=== PATIENT | male | born 1950 | race Caucasian/White ===

== ENCOUNTER 2025-04-06 13:32 | Inpatient (IN) | payer OTHER, SELFPAY ==
--- NOTE | ~2025-04-06 | XR_ITS ---
CLINICAL HISTORY: fall, pain in R knee 2 view right knee Comparison: None provided Findings: No acute fracture. No dislocation. Tricompartment degenerative changes most significantly involving the medial tibiofemoral compartment. No erosions. Postoperative changes consistent with previous ACL repair. Small suprapatellar joint effusion. Atherosclerotic vascular disease. IMPRESSION: 1. No acute fracture or dislocation. 2. Tricompartment degenerative changes and small joint effusion. 3. Previous ACL repair. This document has been electronically signed by: Michelle Gómez MD on 04/06/2025 18:02:35
--- NOTE | ~2025-04-06 | CT_ITS ---
CLINICAL HISTORY: fall with head strike CT head without contrast Comparison: None provided Findings: No intra-axial mass, midline shift or hydrocephalus. There is atrophy. Prominent encephalomalacia in left middle cranial artery territory with ex vacuo dilatation of left lateral ventricle. Supratentorial white matter hypodensities most suggestive of chronic small-vessel ischemic changes. Atherosclerotic vascular disease. 5 mm hyperdensity just lateral to the left lateral ventricle likely a calcification but hemorrhage not entirely excluded. Previous paranasal sinus surgery. Opacified left frontal sinus. Otherwise sinuses and mastoid air cells are clear. The orbits are within normal limits. No acute skull fracture. IMPRESSION: 1. 5 mm focal hyperdensity just lateral to the left lateral ventricle likely a calcification but very small hemorrhage not entirely excluded. 2. Nonacute left MCA territorial infarct, white matter chronic ischemic changes and atherosclerotic vascular disease. This document has been electronically signed by: Michelle Gómez MD on 04/06/2025 18:11:07
--- NOTE | ~2025-04-06 | CT_ITS ---
EXAMINATION: CT CHEST WITHOUT IV CONTRAST INDICATION: cough ?PNA COMPARISON: There are no prior studies available for comparison. TECHNIQUE: Helical CT scan of the chest was performed without intravenous contrast. Coronal and sagittal reformatted images were generated and reviewed. This CT exam was performed with one or more of the following dose reduction techniques: automated exposure control, adjustment of the mA and/or kV according to patient size, use of iterative reconstruction technique. DLP: 59 mGy-cm CHEST: THYROID: The thyroid is unremarkable. LUNGS: There are partially opacified bronchi in the right upper lobe and both lower lobes there is airspace opacity in both lower lobes with associated volume loss system with atelectasis. This is more extensive in the left lower lobe, suggestive of pneumonia. MEDIASTINUM: There is a 1.5 cm paratracheal lymph node. SHAHEED: Evaluation of the hilar regions is limited by lack of intravenous contrast material. CARDIOVASCULATURE: The heart is normal in size. There is no pericardial effusion. The thoracic aorta is normal in caliber. DEGREE OF CORONARY CALCIFICATION: severe PLEURA: There is a small left pleural effusion. No pneumothorax. MAIN AIRWAYS: The mainstem bronchi and proximal branches are patent. AXILLA: There is no axillary lymphadenopathy. BONES AND SOFT TISSUES: Unremarkable UPPER ABDOMEN: The visualized portions of the liver, spleen, and adrenals have an unremarkable unenhanced appearance. There are postsurgical changes involving the stomach. CT/CT chest wo IV con IMPRESSION: 1. Probable left lower lobe pneumonia with an associated small pleural effusion. 2. Opacified bronchi in the right upper lobe and in both lower lobes. Follow-up is recommended. Electronically signed by: Moiz Flor MD 04/08/2025 12:31 PM EDT
--- NOTE | ~2025-04-06 | CT_ITS ---
CLINICAL HISTORY: trauma CT head without contrast Comparison: CT/SR - HEAD HEAD_WITHOUT (ADULT) - 04/06/25 16:56 EDT Findings: No intra-axial mass, midline shift or hydrocephalus. There is atrophy encephalomalacia again demonstrated in left middle cerebral artery territory consistent with nonacute infarcts. There is ex vacuo dilatation of the left lateral ventricle. Nonspecific bilateral supratentorial white matter hypodensities most suggestive of chronic small-vessel ischemic changes. Atherosclerotic vascular disease 5 mm rounded hyperdensity again demonstrated just lateral to the left lateral ventricle likely a calcification. Opacified left frontal sinus. Paranasal sinus surgery. The orbits are within normal limits. No acute skull fracture. IMPRESSION: 1. No new intracranial abnormality. 2. Stable 5 mm rounded hyperdensity just lateral to the left lateral ventricle likely a calcification. 3. Atrophy, nonacute left MCA territorial infarct chronic white matter ischemic changes. This document has been electronically signed by: Michelle Gómez MD on 04/07/2025 01:06:30
--- NOTE | ~2025-04-06 | XR_ITS ---
EXAMINATION: XR CHEST 1 VIEW HISTORY: cough COMPARISON: There are no prior studies available for comparison. FINDINGS: A single AP portable view of the chest performed at 7:07 AM is submitted. There is opacification of the left lung base which may represent atelectasis or pneumonia. Possible small left pleural effusion. No pneumothorax or pulmonary vascular congestion. The heart is normal in size. There is mild degenerative disc disease of the spine. XR/XR chest 1V IMPRESSION: Left basilar atelectasis versus pneumonia possible small pleural effusion. Follow-up is recommended. Electronically signed by: Moiz Flor MD 04/08/2025 08:02 AM EDT
[2025-04-06 13:40] VITALS: BP 140/88; BP 147/81; PULSE 76; PULSE 86; RESP 16; TEMP 36.8; O2SAT 100; O2SAT 98; BMI 32.6
--- NOTE | 2025-04-06 16:01 | ED.GENADULT ---
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 states her had a fall 4 days ago on Monday 04/02 at his assisted living facility when his HALL TENDER was helping him walk and transfer to his recliner chair when she let go of him and he became unstable falling onto his R side and hitting the R side of his head and eye on a cardboard box with immediate R knee pain. Patient was evaluated by EMS but did not go to the hospital. states since the fall, he has been a 2 person assist and the facility wanted the patient evaluated by physical therapy and was sent to ED. [facility] of the R knee were negative. Patient states he is having R knee pain. Denies chest pain, SOB, abdominal pain, nausea, vomiting, headache. MD complaint: weakness Related Data Home Medications ?Medication ?Instructions ?Recorded ?Confirmed acetaminophen 500 mg tablet 500 mg PO Q12H PRN Pain, Mild 04/06/25 04/07/25 albuterol sulfate 2.5 mg/3 mL 2.5 mg inhalation Q6H PRN Wheezing 04/06/25 04/07/25 (0.083 %) solution for nebulization albuterol sulfate 90 mcg/actuation 2 puff inhalation Q4H PRN Wheezing 04/06/25 04/07/25 aerosol inhaler aspirin 325 mg tablet 325 mg PO DAILY 04/06/25 04/06/25 atorvastatin 80 mg tablet (Lipitor) 80 mg PO DAILY 04/06/25 04/06/25 baclofen 20 mg tablet 20 mg QID 04/06/25 04/06/25 clopidogrel 75 mg tablet 75 mg PO DAILY 04/06/25 04/06/25 docusate sodium 100 mg tablet 100 mg PO DAILY 04/06/25 04/06/25 dupilumab 300 mg/2 mL subcutaneous 300 mg subcut Q2W 04/06/25 04/06/25 pen injector (DupixMoogsoft) famotidine 40 mg tablet 40 mg PO BEDTIME 04/06/25 04/06/25 fluoxetine 20 mg capsule (Prozac) 20 mg PO DAILY 04/06/25 04/06/25 fluticasone fur. 200 mcg-umeclid 1 inh inhalation DAILY 04/06/25 04/06/25 62.5 mcg-vilant 25 mcg inhalat.powder (Trelegy Ellipta) fluticasone propionate 50 2 spray intranasal DAILY 04/06/25 04/06/25 mcg/actuation nasal spray,suspension guar gum 1 tbsp PO DAILY 04/06/25 04/06/25 levetiracetam 750 mg tablet 750 mg PO BID 04/06/25 04/06/25 niacinamide 500 mg tablet 500 mg PO BID 04/06/25 04/06/25 omeprazole 40 mg capsule,delayed 40 mg PO DAILY 04/06/25 04/06/25 release tamsulosin 0.4 mg capsule (Flomax) 0.4 mg PO DAILY 04/06/25 04/06/25 Allergies Allergy/AdvReac Type Severity Reaction Status Date / Time amoxicillin Allergy Unknown Verified 04/06/25 13:54 apixaban Allergy Unknown Verified 04/06/25 13:54 doxycycline Allergy Unknown Verified 04/06/25 13:54 Penicillins (PCN) Allergy Unknown Verified 04/06/25 13:54 phenytoin (From Dilantin) Allergy Unknown Verified 04/06/25 13:54 Quinolones Allergy Unknown Verified 04/06/25 13:54 sulfamethoxazole (From Allergy Unknown Verified 04/06/25 13:54 Bactrim) trimethoprim (From Bactrim) Allergy Unknown Verified 04/06/25 13:54 Review of Systems Review of Systems: CONST: Negative for fever, body aches and chills. HENT: Negative for neck pain/stiffness, headache, congestion, sore throat, swelling. EYES: Negative for discharge/pain or vision changes. RESP: Negative for cough/hemoptysis and shortness of breath. CV: Negative chest pain, difficulty breathing, palpitations. ABD: Negative pain, nausea, vomiting. : Negative increase frequency, dysuria, blood in urine or stool. MUSC: Negative for muscle aches, edema. SKIN: Negative rash, lesions/sores. NEURO: Negative headache, dizziness, weakness. Yes all other systems are reviewed and are negative [facility] Past Medical History Attestation statement: The following information was validated with the patient. Source: old records reviewed and nursing notes reviewed Social History Social History Advance Directives: Yes Advance Directives Information Provided: Yes Advance Directives on File: Yes Advance Directives Date on File: 04/07/25 Do you have a plan to hurt others: No Plan Physical Exam ED Vital Signs: Vital Signs - 24 hr 04/07/25 14:19 04/07/25 21:07 04/08/25 06:10 Temperature 98.6 F 97.9 F 98.3 F Pulse Rate 79 70 76 Respiratory Rate 15 16 18 Blood Pressure 117/81 131/73 118/80 Pulse Oximetry 96 94 92 Oxygen Delivery Method Room Air Room Air Room Air 04/08/25 07:45 Temperature Pulse Rate 71 Respiratory Rate 16 Blood Pressure Pulse Oximetry Oxygen Delivery Method BMI result Body Mass Index 32.6 GENERAL APPEARANCE: ?AxOx4, generally well-appearing, no acute distress, patient has dysphasia and R sided weakness as residual deficits from stroke in 2013 HEENT: ?NC, AT. MMM. EOMI, clear conjunctiva, oropharynx clear. Small stage III ecchymosis over the right eye. NECK: ?Supple without lymphadenopathy.? No stiffness or restricted ROM. HEART:? Normal rate and regular rhythm, normal S1/S2, no m/r/g LUNGS:? CTAB, moving air well. No crackles or wheezes are heard. ABDOMEN: ?Soft, nontender, nondistended BACK: No CVAT, no obvious deformity. EXTREMITIES: ?Without cyanosis, clubbing or edema. NEUROLOGICAL: ?Grossly nonfocal. Alert and oriented, moving all 4 extremities. Skin: ?Warm and dry without any rash. Course Reevaluation(s) Reevaluation #1: The patient's CT scan showed a 5 mm hyperdensity in his likely a calcification but could not rule out intracranial hemorrhage. Given that there was a fall 5 days ago with increased weakness I discussed with [facility], Dr. Angulo, who reccommends a repeat head CT in 6 hours to see if the hyperdensity is confimred as a bleed or calcification. In his smaller or a calcification, cleared medically cleared, if it is larger the patient will require transfer. A repeat head CT was ordered for 11:00 p.m. Time: 19:05 Reevaluation #2: Patient's repeat head CT shows a stable 5 mm rounded hyperdensity which is most likely calcification. He is medically cleared for PT and case management. Even if this was a very small bleed, he will be medically cleared after a 6 hour observation period per [facility] recommendations. Time: 01:08 Reevaluation #3: 04/07/2025 0758 Melanie Braun PA-C ---> Observation continues. Case management continues to follow. Additional Reevaluation(s): Physician observation continued. Uneventful night. Vital signs stable. No complaints from nursing overnight. Med reconciliation reviewed and done. Pending disposition. Will continue to monitor. -1308--patient noted to have dropping O2 and chunky cough on exam. Chest x-ray questioning atelectasis vs pneumonia vs pleural effusion > will obtain CT for further eval CT chest wo IV con IMPRESSION: 1. Probable left lower lobe pneumonia with an associated small pleural effusion. 2. Opacified bronchi in the right upper lobe and in both lower lobes. Follow-up is recommended. > we will initiate patient on antibiotics. Plan for admission due to elevated PORT score =105. Case discussed with hospitalist 13:17 Medications Administered Generic Name Dose Route Start Last Admin Trade Name Freq PRN Reason Stop Dose Admin Aspirin 325 mg 04/07/25 09:00 04/08/25 08:58 Aspirin 325 Mg Tablet PO 325 mg DAILY ALICE Administration Atorvastatin Calcium 80 mg 04/07/25 09:00 04/08/25 08:58 Atorvastatin Calcium 80 Mg Tablet PO 80 mg DAILY ALICE Administration Baclofen 20 mg 04/07/25 09:00 04/08/25 08:57 Baclofen 20 Mg Tablet PO 20 mg QID ALICE Administration Clopidogrel Bisulfate 75 mg 04/07/25 09:00 04/08/25 08:58 Clopidogrel Bisulfate 75 Mg Tablet PO 75 mg DAILY ALICE Administration Docusate Sodium 100 mg 04/07/25 09:00 04/08/25 08:53 Docusate Sodium 100 Mg Capsule PO 100 mg DAILY ALICE Administration Famotidine 40 mg 04/07/25 21:00 04/07/25 21:29 Famotidine 20 Mg Tablet PO 40 mg BEDTIME ALICE Administration Fluoxetine HCl 20 mg 04/07/25 09:00 04/08/25 08:58 Fluoxetine Hcl 20 Mg Capsule PO 20 mg DAILY ALICE Administration Fluticasone Propionate 2 spray 04/07/25 09:00 04/08/25 09:55 Fluticasone Propionate Nasal 16 Gm [place] NOSTRIL-B Not Given DAILY ALICE Fluticasone/Umeclidinium/Vilanterol 1 puff 04/07/25 09:00 04/08/25 09:33 Fluticasone/Umeclidinium/Vilanterol 200/62.11/21 Blst.W.Dev INHALE 1 puff DAILY ALICE Administration Levetiracetam 750 mg 04/07/25 09:00 04/08/25 08:59 Levetiracetam 250 Mg Tablet PO 750 mg BID ALICE Administration Pt Owned Medication 1 each 04/07/25 13:00 04/07/25 13:06 (Dupixent 300mg SUBCUT 1 each Subcutaneous Pre- Q14D ALICE Administration Filled Pen) Omeprazole 40 mg 04/07/25 06:30 04/08/25 06:11 Omeprazole 40 Mg Capsule. 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 Patient had a recent fall due to his right knee giving out underneath him while his HALL TENDER was helping him transfer to his recliner chair. Since then he has required a 2 person assist, his assisted living facility wants him evaluated by Physical therapy and was sent in due to these concerns. Patient is experiencing right knee pain. Plan: Labs, EKG, CT head/brain, XR R knee, PT evaluation EKG reveals normal sinus rhythm without significant ST-elevation/depression, T-wave abnormality, lengthened QT. Labs without leukocytosis/leukopenia, normocytic anemia with a hemoglobin of 12.7, hematocrit of 36.4, hyponatremia with a sodium of 133. Viral serology negative for COVID and flu. UA negative for blood or infection. Patient is currently awaiting CT head/brain, XR R knee for further evaluation as I was unable to obtain x-rays, patient did not have CT head brain after falling and hitting right side of head on cardboard box. Differential Diagnosis Differential Diagnoses: The differential diagnosis associated with the presentation includes ICH Right knee fracture Electrolyte abnormality Physical deconditioning Admission/Observation Consideration of admission/observation: Escalation of care including admission/observation considered Lab Data MDM Lab Attestation statement: I reviewed the patient's lab results. 04/06/25 16:23 04/06/25 16:23 Labs: Lab Results 04/06/25 04/06/25 Range/Units 16:23 17:13 WBC 6.2 (4.8-10.8) X10*3/uL RBC 4.06 L (4.60-5.80) X10*6/uL Hgb 12.7 L (14.0-18.0) g/dl Hct 36.4 L (42.0-52.0) % MCV 89.7 (80.0-98.0) fL MCH 31.3 (27.0-33.0) pg MCHC 34.9 (31.0-36.0) g/dl RDW 13.3 (11.0-16.0) % Plt Count 183 D (160-400) X10*3/uL MPV 8.7 L (9.4-12.4) fL Immature Gran % (Auto) 0.3 (0.0-0.4) % Neut % (Auto) 47.1 (45-73) % Lymph % (Auto) 19.1 L (20-40) % [place] % (Auto) 15.4 H (2-11) % Eos % (Auto) 17.3 H (0-4) % Baso % (Auto) 0.8 (0-2) % Lymph # (Auto) 1.2 (1.2-4.9) X10*3/uL [place]ner # (Auto) 1.0 (0.1-1.2) X10*3/uL Eos # (Auto) 1.1 H (0.0-0.4) X10*3/uL Baso # (Auto) 0.1 (0.0-0.2) X10*3/uL Abs Immat Gran (auto) 0.02 (0.00-0.03) X10*3/uL Absolute Neuts (auto) 2.9 (2.0-8.3) x10*3/uL Absolute Nucleated RBC 0.000 (0.0-0.012) X10*3/uL Nucleated RBC % (auto) 0.0 (0.0-0.2) /100WBC Sodium 133 L (135-145) mmol/L Potassium 4.2 (3.3-5.1) mmol/L Chloride 102 (96-108) mmol/L Carbon Dioxide 26 (22-29) mmol/L Anion Gap 9 L (12-20) BUN 14 (9-16) mg/dL Creatinine 0.69 (0.5-1.4) mg/dL Estim Creat Clear Calc 91.5 Estimated GFR > 60 Random Glucose 118 H (60-115) mg/dL Calcium 8.9 (8.4-10.2) mg/dL Magnesium 1.8 (1.6-2.6) mg/dL Total Bilirubin 0.6 (0.0-1.0) mg/dL AST 37 (5-37) U/L ALT 32 (0-40) U/L Alkaline Phosphatase 108 (39-117) U/L Total Protein 6.0 L (6.5-8.0) g/dL Albumin 3.8 (3.5-5.0) g/dL Urine Color Yellow Urine Appearance Clear Urine pH 7.5 (5.0-9.0) Ur Specific [place] 1.010 (1.005-1.025) Urine Protein Negative (Neg-Trace) mg/dL Urine Glucose (UA) Negative (Negative) mg/dL Urine Ketones Negative (Negative) mg/dL Urine Blood Negative (Negative) Urine Nitrite Negative (Negative) Ur Leukocyte Esterase Negative (Negative) COVID-19 (TIAGO) Negative (Negative) COVID-19 Clin Com See Note Influenza Type A (RIKA) Negative (Negative) Influenza Type B (RIKA) Negative (Negative) Influenza A & B Note See Note Independent Interpretation I performed an independent interpretation of an: Plain X-Ray and CT Scan Radiology Impression Discussion of test interpretation with radiology: I have reviewed the radiologist's reading. Radiologist Impression: CT head/brain XR R knee Independent Historian Clinical information obtained from an independent historian. History obtained from or confirmed by: Spouse ( at bedside corroborating history) External Record Review External record reviewed: Inpatient record, Office record and Outpatient record Chronic Conditions Patient?s care impacted by: Other (CVA in 2014 with dysphagia and right-sided deficits) Discharge Plan Discharge Clinical Impression: Weakness Prescriptions: No Action acetaminophen 500 mg Tablet 500 mg PO Q12H PRN (Reason: Pain, Mild) atorvastatin [Lipitor] 80 mg Tablet 80 mg PO DAILY albuterol sulfate 2.5 mg /3 mL (0.083 %) Solution For Nebulization 2.5 mg inhalation Q6H PRN (Reason: Wheezing) aspirin 325 mg Tablet 325 mg PO DAILY famotidine 40 mg Tablet 40 mg PO BEDTIME omeprazole 40 mg Capsule,Delayed Release(Dr/Ec) 40 mg PO DAILY Benefiber (guar gum) Packet 1 tbsp PO DAILY Rx Instructions: mix into at least 4 oz water or juice before administering baclofen 20 mg Tablet 20 mg QID tamsulosin [Flomax] 0.4 mg Capsule 0.4 mg PO DAILY levetiracetam 750 mg Tablet 750 mg PO BID albuterol sulfate [ProAir HFA] 90 mcg/actuation Hfa Aerosol Inhaler 2 puff INHALATION Q4H PRN (Reason: Wheezing) fluoxetine [Prozac] 20 mg Capsule 20 mg PO DAILY fluticasone propionate 50 mcg/actuation [place],Suspension 2 spray INTRANASAL DAILY Rx Instructions: administer into each nostril docusate sodium 100 mg Tablet 100 mg PO DAILY Trelegy Ellipta 200-62.5-25 mcg Blister With Device 1 inh INHALATION DAILY Dupixent Pen 300 mg/2 mL Pen Injector 300 mg SUBCUT Q2W clopidogrel 75 mg Tablet 75 mg PO DAILY niacinamide 500 mg Tablet 500 mg PO BID Print Language: Somali
--- NOTE | 2025-04-06 16:02 | ECG_ITS ---
Test Reason : WEAKNESS Blood Pressure : */* mmHG Vent. Rate : 80 BPM Atrial Rate : 80 BPM P-R Int : 196 ms QRS Dur : 80 ms QT Int : 384 ms P-R-T Axes : 26 -22 -1 degrees QTcB Int : 442 ms Normal sinus rhythm Minimal voltage criteria for LVH, may be normal variant ( R in aVL ) Borderline ECG No previous ECGs available Referred By: Thea Colón Electronically Signed By: SINCERE JOSEPH MD
[2025-04-06 16:27] LABS: MANUAL DIFF FLAG NO
[2025-04-06 16:28] LABS: Hematocrit 36.4 % (42.0-52.0); Hemoglobin 12.7 g/dl (14.0-18.0); Imm Gran Abs Auto 0.02 X10*3/uL (0.00-0.03); Imm Gran Pct Auto 0.3 % (0.0-0.4); Lymphocytes Absolute Auto 1.2 X10*3/uL (1.2-4.9); Mean Corpuscular HGB Conc 34.9 g/dl (31.0-36.0); Mean Corpuscular Hemoglobin 31.3 pg (27.0-33.0); Mean Corpuscular Volume 89.7 fL (80.0-98.0); NRBC Abs Auto 0.000 X10*3/uL (0.0-0.012); NRBC Pct Auto 0.0 /100WBC (0.0-0.2); Platelet Count 183 X10*3/uL (160-400); Red Blood Count 4.06 X10*6/uL (4.60-5.80); White Blood Count 6.2 X10*3/uL (4.8-10.8)
[2025-04-06 16:43] LABS: Alanine Aminotransferase 32 U/L (0-40); Albumin Level 3.8 g/dL (3.5-5.0); Alkaline Phosphatase 108 U/L (39-117); Anion Gap 9 (12-20); Aspartate Amino Transferase 37 U/L (5-37); Blood Urea Nitrogen 14 mg/dL (9-16); Calcium 8.9 mg/dL (8.4-10.2); Carbon Dioxide 26 mmol/L (22-29); Chloride 102 mmol/L (96-108); Creatinine Clr Calc Pharmacy 91.5; Estimated Glomerular Filt Rate > 60; Magnesium 1.8 mg/dL (1.6-2.6); Potassium 4.2 mmol/L (3.3-5.1); Sodium 133 mmol/L (135-145); Total Protein 6.0 g/dL (6.5-8.0)
[2025-04-06 16:45] LABS: COVID-19 Test Negative (Negative); IDNOW Serial# 55D5AD1C; IDNOW Serial# 58CA691E
[2025-04-06 16:46] LABS: Influenza B2 Negative (Negative)
[2025-04-06 17:13] VITALS: BP 157/89; PULSE 71; RESP 14; TEMP 36.6; O2SAT 96
[2025-04-06 17:20] LABS: Appearance Urine Clear; Glucose Urine UA Negative (Negative); PH 7.5 (5.0-9.0); Specific Gravity - Urine 1.010 (1.005-1.025)
[2025-04-06 23:50] VITALS: BP 145/70; PULSE 66; RESP 18; TEMP 36.6; O2SAT 94
[2025-04-07 05:21] VITALS: BP 163/92; PULSE 72; RESP 18; O2SAT 95
--- NOTE | 2025-04-07 07:36 | PHA.MEDREC ---
Pharmacy Consult ? Medication Reconciliation Pharmacy has completed the medication reconciliation. reviewed med rec done by nursing.
[2025-04-07 07:50] VITALS: BP 165/89; PULSE 75; RESP 16; TEMP 37.1; O2SAT 93
--- NOTE | 2025-04-07 08:23 | PC.NURSE ---
PT at bedside. Pt up oob with PT to recliner. Call barney within reach, all needs met at this time.
--- NOTE | 2025-04-07 10:35 | MHC.CM.ED ---
Received case management consult overnight. Patient came to the ER from [facility] d/t weakness. Work up essentially negative. Physical therapy eval completed. Short term rehab is recommended. Met with patient in regards to discharge planning. Patient has a history of CVA and has some difficulty word finding. Attempted to speak with patient's , Fredis, via telephone at [phone]. Left message requesting return telephone call. Patient is active with [facility]. Referral will be broadcasted locally for STR bed availability. Bed offers will be discussed with patient and . Continue to monitor for d/c needs.
--- NOTE | 2025-04-07 10:55 | MHC.CM.ED ---
Patient's Fredis is now bedside. Met with patient and Fredis to discuss d/c planning. Fredis is interested in Acute Rehab for patient. Fredis aware referral will be broadcasted to all 3 acute rehab facilities. Also aware bed would have to be offered and insurance with have to auth. Fredis verbalized understanding. Referral made to all 3 acute rehab facilities. Continue to monitor for d/c needs.
[2025-04-07] MEDS: Fluticasone/Umeclidinium/Vilanterol 200/62.5/25 BLST.W.DEV 1 PUFF INHALE (10:57)
[2025-04-07] MEDS: DUPILUMAB SUBCUT (13:06)
[2025-04-07] MEDS: [UNRECOGNIZED DRUG - OTHER] SUBCUT (13:06)
[2025-04-07 14:19] VITALS: BP 117/81; PULSE 79; RESP 15; TEMP 37; O2SAT 96
[2025-04-07 21:07] VITALS: BP 131/73; PULSE 70; RESP 16; TEMP 36.6; O2SAT 94
[2025-04-08 06:10] VITALS: BP 118/80; PULSE 76; RESP 18; TEMP 36.8; O2SAT 92
[2025-04-08 07:45] VITALS: PULSE 71; RESP 16; O2SAT 99
[2025-04-08] MEDS: Fluticasone/Umeclidinium/Vilanterol 200/62.5/25 BLST.W.DEV 1 PUFF INHALE (09:33)
--- NOTE | 2025-04-08 11:56 | PC.NURSE ---
Pt has been alert since this RN arrival at 7am. Pt is unble to state needs easily d/t residual dysphasia from stroke 10 years ago. Right deficit is also residual. Pt has attempted to use urinal repeatedly w/o success and wondered if abd was distended. At this point Bladder scan showed 193. Shortly after bladder scan patient was able to void 250ml in urinal. Was given AM care and up to recliner with 2 person assist and use of adaptive walker. Pt has been coughing throughout am with productive clear mucous. LS clear throughout. Unlabored resp. Provider was made aware and patient has gone for CT to r/o Pneumonia. is aware of possibility that patient is admitted to [facility] for pneumonia
[2025-04-08 13:46] VITALS: BP 126/72; PULSE 71; RESP 18; TEMP 36.7; O2SAT 98
--- NOTE | 2025-04-08 14:03 | MHC.CM.ED ---
Patient remains in ER overflow. No acute rehab bed offers. Received notification that patient will be admitted to the hospital for pneumonia. Continue to monitor for d/c needs.
[2025-04-08 14:35] LABS: MANUAL DIFF FLAG NO
[2025-04-08 14:48] LABS: Hematocrit 37.5 % (42.0-52.0); Hemoglobin 12.9 g/dl (14.0-18.0); Imm Gran Abs Auto 0.02 X10*3/uL (0.00-0.03); Imm Gran Pct Auto 0.3 % (0.0-0.4); Lymphocytes Absolute Auto 1.2 X10*3/uL (1.2-4.9); Mean Corpuscular HGB Conc 34.4 g/dl (31.0-36.0); Mean Corpuscular Hemoglobin 31.0 pg (27.0-33.0); Mean Corpuscular Volume 90.1 fL (80.0-98.0); NRBC Abs Auto 0.000 X10*3/uL (0.0-0.012); NRBC Pct Auto 0.0 /100WBC (0.0-0.2); Platelet Count 215 X10*3/uL (160-400); Red Blood Count 4.16 X10*6/uL (4.60-5.80); White Blood Count 6.9 X10*3/uL (4.8-10.8)
[2025-04-08 14:53] LABS: Anion Gap 9 (12-20); Blood Urea Nitrogen 15 mg/dL (9-16); Calcium 8.8 mg/dL (8.4-10.2); Carbon Dioxide 27 mmol/L (22-29); Chloride 98 mmol/L (96-108); Creatinine Clr Calc Pharmacy 98.7; Estimated Glomerular Filt Rate > 60; Potassium 4.2 mmol/L (3.3-5.1); Sodium 130 mmol/L (135-145)
--- NOTE | 2025-04-08 15:03 | P.HPHOSP_ITS ---
History of Present Illness Date of Service: 04/08/25 Attending physician on admission: Jorge Alberto Daily Chief Complaint: cough This is a 74-year-old male with a history of stroke with residual right-sided weakness and expressive aphasia who presented to the emergency department due to weakness. He fell on FridayApril 02 at the assisted living facility, he fell onto his right side and hit his head. At that time he did not go to the hospital. Since his fall he has been a to assist. And he has had right knee pain since the fall. The day prior to arrival in the hospital he was seen at the [facility] and had x-rays of his knee which were unremarkable. CT scan done in the emergency department showed a 5 mm hyperdensity likely calcification but could not rule out intracranial hemorrhage, the case was discussed with [facility] who recommended repeating the head CT. Head CT was stable and therefore no indication for any further intervention. He was admitted to [facility] under physician observation for physical therapy evaluation. While in [facility] patient was noted to have productive cough, a chest CT was obtained which showed a left-sided pneumonia with small parapneumonic effusion. For this reason the decision was made to admit him to the hospital for further management. Patient is unable to provide any significant history himself due to deficits from his stroke, history was primarily obtained from his at the bedside. Review of Systems 2 Review of Systems: unable to obtain from pt due to aphasia Yes all other systems are reviewed and are negative [facility] Medical History Stroke Social History Advance Directives: Yes Advance Directives Information Provided: Yes Advance Directives on File: Yes Advance Directives Date on File: 04/07/25 Do you have a plan to hurt others: No Plan Meds Allergies Allergy/AdvReac Type Severity Reaction Status Date / Time amoxicillin Allergy Unknown Verified 04/06/25 13:54 apixaban Allergy Unknown Verified 04/06/25 13:54 doxycycline Allergy Unknown Verified 04/06/25 13:54 Penicillins (PCN) Allergy Unknown Verified 04/06/25 13:54 phenytoin (From Dilantin) Allergy Unknown Verified 04/06/25 13:54 Quinolones Allergy Unknown Verified 04/06/25 13:54 sulfamethoxazole (From Allergy Unknown Verified 04/06/25 13:54 Bactrim) trimethoprim (From Bactrim) Allergy Unknown Verified 04/06/25 13:54 Active Medications: Current Medications Acetaminophen (Acetaminophen 325 Mg Tablet) 650 mg PO Q12H PRN PRN Reason: Pain, Mild Acetaminophen (Acetaminophen 325 Mg Tablet) 650 mg PO Q6H PRN PRN Reason: Pain, Mild 1-3,fever,headache Albuterol Sulfate (Albuterol Sulfate (0.083%) 2.5 Mg/3 Ml Vial.Neb) 2.5 mg INHALE Q6H PRN PRN Reason: Wheezing Albuterol Sulfate (Albuterol Sulfate 90 Mcg 8 Gm Inhaler) 2 puff INHALE Q4H PRN PRN Reason: Wheezing Aspirin (Aspirin 325 Mg Tablet) 325 mg PO DAILY [facility] Last Admin: 04/08/25 08:58 Dose: 325 mg Atorvastatin Calcium (Atorvastatin Calcium 80 Mg Tablet) 80 mg PO DAILY [facility] Last Admin: 04/08/25 08:58 Dose: 80 mg Baclofen (Baclofen 20 Mg Tablet) 20 mg PO QID [facility] Last Admin: 04/08/25 08:57 Dose: 20 mg Calcium Carbonate (Calcium Carbonate 750 Mg Tab.Chew) 750 mg PO Q4H PRN PRN Reason: Heartburn Clopidogrel Bisulfate (Clopidogrel Bisulfate 75 Mg Tablet) 75 mg PO DAILY [facility] Last Admin: 04/08/25 08:58 Dose: 75 mg Docusate Sodium (Docusate Sodium 100 Mg Capsule) 100 mg PO DAILY [facility] Last Admin: 04/08/25 08:53 Dose: 100 mg Famotidine (Famotidine 20 Mg Tablet) 40 mg PO BEDTIME [facility] Last Admin: 04/07/25 21:29 Dose: 40 mg Fluoxetine HCl (Fluoxetine Hcl 20 Mg Capsule) 20 mg PO DAILY [facility] Last Admin: 04/08/25 08:58 Dose: 20 mg Fluticasone Propionate (Fluticasone Propionate Nasal 16 Gm [place]) 2 spray NOSTRIL-B DAILY [facility] Last Admin: 04/08/25 09:55 Dose: Not Given Fluticasone/Umeclidinium/Vilanterol (Fluticasone/Umeclidinium/Vilanterol 200/62.5/25 Blst.W.Dev) 1 puff INHALE DAILY [facility] Last Admin: 04/08/25 09:33 Dose: 1 puff Heparin Sodium (Porcine) (Heparin Sodium,Porcine 5,000 Unit/Ml Vial) 5,000 unit SUBCUT Q12H [facility] Azithromycin 500 mg/ Sodium (Chloride) 250 mls @ 125 mls/hr IV ONCE ONE Stop: 04/08/25 15:12 Levetiracetam (Levetiracetam 250 Mg Tablet) 750 mg PO BID [facility] Last Admin: 04/08/25 08:59 Dose: 750 mg Magnesium Hydroxide (Milk Of Magnesia 30 Ml Oral.Susp) 30 ml PO DAILY PRN PRN Reason: Constipation Melatonin (Melatonin 3 Mg Tablet) 6 mg PO BEDTIME PRN PRN Reason: Insomnia Pt Owned Medication (Dupixent 300mg Subcutaneous Pre- Filled Pen) 1 each SUBCUT Q14D [facility] Last Admin: 04/07/25 13:06 Dose: 1 each Omeprazole (Omeprazole 40 Mg Capsule.Dr) 40 mg PO DAILY@0630 [facility] Last Admin: 04/08/25 06:11 Dose: 40 mg Sodium Chloride (0.9 % Sodium Chloride Flush 3 Ml Syringe) 3 ml IVFLUSH QSHIFT [facility] Tamsulosin HCl (Tamsulosin Hcl 0.4 Mg Capsule) 0.4 mg PO DAILY [facility] Last Admin: 04/08/25 08:57 Dose: 0.4 mg Home Medications ?Medication ?Instructions ?Recorded ?Confirmed ?Last Taken ?Type acetaminophen 500 mg tablet 500 mg PO Q12H PRN Pain, M ild 04/06/25 04/07/25 Unknown History albuterol sulfate 2.5 mg/3 mL 2.5 mg inhalation Q6H OR N Wheezing 04/06/25 04/07/25 Unknown History (0.083 %) solution for nebulization albuterol sulfate 90 mcg/actuation 2 puff inhalation Q 4H PRN Wheezing 04/06/25 04/07/25 Unknown History aerosol inhaler aspirin 325 mg tablet 325 mg PO DAILY 04/06/2502/21 Unknown History atorvastatin 80 mg tablet (Lipitor) 80 mg PO DAILY 02/2104/06/25 Unknown History baclofen 20 mg tablet 20 mg QID 04/06/25 04/06/25 Unknown History clopidogrel 75 mg tablet 75 mg PO DAILY 04/06/2502/21 Unknown History docusate sodium 100 mg tablet 100 mg PO DAILY 04/06/25 04/06/25 Unknown History dupilumab 300 mg/2 mL subcutaneous 300 mg subcut Q2W 1 04/06/25 03/23/25 History pen injector (Dupixent) famotidine 40 mg tablet 40 mg PO BEDTIME 04/06/25 Unknown History fluoxetine 20 mg capsule (Prozac) 20 mg PO DAILY 04/0604/06/25 Unknown History fluticasone fur. 200 mcg-umeclid 1 inh inhalation LOU Y 04/06/25 04/06/25 Unknown History 62.5 mcg-vilant 25 mcg inhalat.powder (Trelegy Ellipta) fluticasone propionate 50 2 spray intranasal DAILY 02/2104/06/25 Unknown History mcg/actuation nasal spray,suspension guar gum 1 tbsp PO DAILY 04/06/2502/21 Unknown History levetiracetam 750 mg tablet 750 mg PO BID 04/06/2502/21 Unknown History niacinamide 500 mg tablet 500 mg PO BID 04/06/2504/06 Unknown History omeprazole 40 mg capsule,delayed 40 mg PO DAILY 04/06/25 Unknown History release tamsulosin 0.4 mg capsule (Flomax) 0.4 mg PO DAILY 02/2104/06/25 Unknown History Physical Exam 2 Vital Signs and Narrative: Vital Signs: Last Vital Signs Temp 98.1 F 04/08/25 13:46 Pulse 71 04/08/25 13:46 Resp 18 04/08/25 13:46 BP 126/72 04/08/25 13:46 Pulse Ox 98 04/08/25 13:46 O2 Del Method Room Air 04/08/25 13:46 BMI result Body Mass Index 32.6 Const: General: comfortable, alert and awake Nutritional Appearance: o verweight Orientation/consciousness: Other orientation findings (unable to assess due to aphasia) Resp: Other: rhonchi Effort & Inspection: normal respiratory effort, able to speak in complete sentences, no respiratory distress and no use of accessory muscles Cardio: Rate: regular rate GI: Inspection: No distended Palpation (GI): Soft to palpation and nontender Extrem: Other: brace RLE; reports he's having right knee pain, there is no redness no open wounds, no joint line pain no appreciable effusion Results Labs 04/08/25 14:31 04/08/25 14:31 Labs: Laboratory Results - last 24 hr 04/08/25 14:31 MCV 90.1 MCH 31.0 MCHC 34.4 RDW 13.2 Plt Count 215 MPV 9.1 L Immature Gran % (Auto) 0.3 Neut % (Auto) 56.1 Lymph % (Auto) 18.1 L [place] % (Auto) 13.4 H Eos % (Auto) 11.5 H Baso % (Auto) 0.6 Lymph # (Auto) 1.2 [place] # (Auto) 0.9 Eos # (Auto) 0.8 H Baso # (Auto) 0.0 Abs Immat Gran (auto) 0.02 Absolute Neuts (auto) 3.9 Absolute Nucleated RBC 0.000 Nucleated RBC % (auto) 0.0 Anion Gap 9 L Estim Creat Clear Calc 98.7 Estimated GFR > 60 Random Glucose 93 Calcium 8.8 Imaging Radiologist's Impressions: Impressions Chest X-Ray 04/08/25 07:07 IMPRESSION: Left basilar atelectasis versus pneumonia possible small pleural effusion. Follow-up is recommended. Electronically signed by: Moiz Flor MD 04/08/2025 08:02 AM EDT RP Chest CT 04/08/25 11:57 IMPRESSION: 1. Probable left lower lobe pneumonia with an associated small pleural effusion. 2. Opacified bronchi in the right upper lobe and in both lower lobes. Follow-up is recommended. Electronically signed by: Moiz Flor MD 04/08/2025 12:31 PM EDT RP Assessment and Plan (1) Pneumonia: Status: Acute Plan This is a 74-year-old male with history of stroke with residual right-sided weakness who was brought to the emergency department due to weakness Pneumonia Chest CT showing left-sided pneumonia with small parapneumonic effusion treat with IV ceftriaxone, azithromycin Should have outpatient follow-up imaging after treatment course Given history of stroke and dysphagia will obtain speech evaluation to assess for aspiration hyponatremia sodium 130 appears euvolemic. possibly due to lung dz vs SSRI check urine studies trend BMP Mechanical fall with right knee pain X-ray showing degenerative changes with small joint effusion, no fractures appreciated PT evaluation-recommending short-term rehab Seizure disorder Continue Keppra Mood Continue Prozac History of stroke continue DAPT, statin gerd continue prilosec bph continue flomax dvt ppt - heparin code status - full code Patient will likely require 2 midnight stay in the hospital for management of pneumonia requiring IV antibiotics and close monitoring of oxygen saturation Quality Stroke Does the patient have a stroke diagnosis?: No VTE Prior VTE?: No VTE Risk Level:: Medical - moderate - high VTE Device Contraindication: Treatment Not Indicated VTE Drug Contraindication: N/A - Med Ordered
--- NOTE | 2025-04-08 15:28 | HO.NURTONUR ---
Addendum entered by Heidi Ruiz RN 04/08/25 15:30: Labs are WNL. Neg resp swabs. No distress. #20 left forearm. Eats independenty with chopped diet. Original Note: Pt sent to ED after falling at Assisted Living. Pt has severe right sided deficit and dysphagia after Stroke 10 years ago. Is a 2 assist with millie walker. Unable to state needs but gives thumbs up/down to communicate. Cough develeped last night and now admitted for Pneumonia./ Lowest SaO2 was 92 on room air. LS CTA. Cough is productive clear.
[2025-04-08 16:16] VITALS: BMI 31.2
[2025-04-08 16:20] VITALS: BP 142/74; PULSE 71; RESP 18; TEMP 36.4; O2SAT 97
--- NOTE | 2025-04-08 18:21 | MHC.SL.SWA ---
Speech Pathologist Impression: Risk of Aspiration, Oropharyngeal Dysphagia, Expressive Aphasia Dysphasia Diet Status: No Change Liquid Consistency and Strategies for Safe Swallow: Liquid Intake Recommendation: Thin Solid Food Consistency: Dietary Recommendations: Chopped/Advanced (NDD3) Additional Modifications to Solid Foods: Recommend continue on CHOPPED/ADVANCED (NDD3) (as ordered per MD) and THIN liquids, pills WHOLE or CRUSHED in PUREE per patient's tolerance. Patient w/ hx stroke 10 years ago, with severe R-sided deficient, dysphagia, and expressive aphasia. Patient will need assistance with tray set up and throughout meal to ensure items are opened and accessible (uses L-side for feeding). No changes made to diet order. MD, PA, RN, and RD notified of recommendations. Oral Medication Intake: Whole with Puree Please contact the pharmacy regarding appropriate crushable or liquid drug formulations that are available whenever modified delivery is recommended. Supervision While Eating and Drinking for Safe Swallow: Direct Supervision (1:1) Recommendation for Speech: Inpatient Speech Therapy Comment: OUTREACH ANALYST will continue to follow during inpatient stay for dysphagia tx and communication needs. Frequency/Duration: M-F while inpatient Date Range for Service Req: Timeline to reassess: Recruiter Clinican/Clinical Fellow: No Supervisory Statement: I have reviewed and agree with the student/clinical fellow's documentation: N/A Speech Language Pathologist: Klaudia Blake M.A., CCC-OUTREACH ANALYST
[2025-04-08 20:00] VITALS: BP 128/73; PULSE 79; RESP 16; TEMP 36.4; O2SAT 94
[2025-04-08] MEDS: 0.9 % Sodium Chloride Flush 3 ML SYRINGE IVFLUSH (20:34)
[2025-04-09 03:00] VITALS: BP 108/61; PULSE 76; RESP 16; TEMP 36.9; O2SAT 94
[2025-04-09 07:21] LABS: Anion Gap 10 (12-20); Blood Urea Nitrogen 16 mg/dL (9-16); Calcium 8.3 mg/dL (8.4-10.2); Carbon Dioxide 24 mmol/L (22-29); Chloride 101 mmol/L (96-108); Creatinine Clr Calc Pharmacy 106.5; Estimated Glomerular Filt Rate > 60; Potassium 3.8 mmol/L (3.3-5.1); Sodium 131 mmol/L (135-145)
[2025-04-09 08:00] VITALS: BP 129/71; PULSE 69; RESP 16; TEMP 37.1; O2SAT 92
[2025-04-09] MEDS: Fluticasone/Umeclidinium/Vilanterol 200/62.5/25 BLST.W.DEV 1 PUFF INHALE (08:05)
[2025-04-09 08:07] VITALS: PULSE 76; RESP 18; O2SAT 97
[2025-04-09] MEDS: 0.9 % Sodium Chloride Flush 3 ML SYRINGE IVFLUSH ×2 (09:12→20:15)
--- NOTE | 2025-04-09 09:40 | HO.PM.IMPN ---
Subjective Subjective Date of Service: 04/09/25 Interval History: no complaints Physical Exam Exam: Exam: General: Alert, verbal with wernickes aphasia Resp: CTA bilateral, no accessory muscles used CVS: S1,S2,RRR GI: soft, non tender, non distended Vital Signs: Vital Signs: Last Vital Signs Temp 98.8 F 04/09/25 08:00 Pulse 76 04/09/25 08:07 Resp 18 04/09/25 08:07 BP 129/71 04/09/25 08:00 Pulse Ox 92 04/09/25 08:00 O2 Del Method Room Air 04/09/25 08:00 BMI result Body Mass Index 31.2 Objective Data Active Medications Acetaminophen (Acetaminophen 325 Mg Tablet) 650 mg PO Q12H PRN PRN Reason: Pain, Mild Acetaminophen (Acetaminophen 325 Mg Tablet) 650 mg PO Q6H PRN PRN Reason: Pain, Mild 1-3,fever,headache Albuterol Sulfate (Albuterol Sulfate (0.083%) 2.5 Mg/3 Ml Vial.Neb) 2.5 mg INHALE Q6H PRN PRN Reason: Wheezing Albuterol Sulfate (Albuterol Sulfate 90 Mcg 8 Gm Inhaler) 2 puff INHALE Q4H PRN PRN Reason: Wheezing Aspirin (Aspirin 325 Mg Tablet) 325 mg PO DAILY [facility] Last Admin: 04/09/25 09:12 Dose: 325 mg Documented By: ARIN Atorvastatin Calcium (Atorvastatin Calcium 80 Mg Tablet) 80 mg PO DAILY [facility] Last Admin: 04/09/25 09:12 Dose: 80 mg Documented By: ARIN Baclofen (Baclofen 20 Mg Tablet) 20 mg PO QID [facility] Last Admin: 04/09/25 09:12 Dose: 20 mg Documented By: ARIN Calcium Carbonate (Calcium Carbonate 750 Mg Tab.Chew) 750 mg PO Q4H PRN PRN Reason: Heartburn Ceftriaxone Sodium (Ceftriaxone Sodium 1 Gm Vial) 1 gm IVPUSH Q24H [facility] Clopidogrel Bisulfate (Clopidogrel Bisulfate 75 Mg Tablet) 75 mg PO DAILY [facility] Last Admin: 04/09/25 09:11 Dose: 75 mg Documented By: ARIN Docusate Sodium (Docusate Sodium 100 Mg Capsule) 100 mg PO DAILY [facility] Last Admin: 04/09/25 09:12 Dose: 100 mg Documented By: ARIN Famotidine (Famotidine 20 Mg Tablet) 40 mg PO BEDTIME [facility] Last Admin: 04/08/25 20:33 Dose: 40 mg Documented By: JERONIMO Fluoxetine HCl (Fluoxetine Hcl 20 Mg Capsule) 20 mg PO DAILY [facility] Last Admin: 04/09/25 09:12 Dose: 20 mg Documented By: ARIN Fluticasone Propionate (Fluticasone Propionate Nasal 16 Gm [place]) 2 spray NOSTRIL-B DAILY [facility] Last Admin: 04/09/25 09:13 Dose: 2 spray Documented By: ARIN Fluticasone/Umeclidinium/Vilanterol (Fluticasone/Umeclidinium/Vilanterol 200/62.5/25 Blst.W.Dev) 1 puff INHALE DAILY [facility] Last Admin: 04/09/25 08:05 Dose: 1 puff Documented By: ELVA Heparin Sodium (Porcine) (Heparin Sodium,Porcine 5,000 Unit/Ml Vial) 5,000 unit SUBCUT Q12H [facility] Last Admin: 04/09/25 03:40 Dose: 5,000 unit Documented By: JERONIMO Azithromycin 500 mg/ Sodium (Chloride) 250 mls @ 125 mls/hr IV Q24H [facility] Levetiracetam (Levetiracetam 250 Mg Tablet) 750 mg PO BID [facility] Last Admin: 04/09/25 09:11 Dose: 750 mg Documented By: ARIN Magnesium Hydroxide (Milk Of Magnesia 30 Ml Oral.Susp) 30 ml PO DAILY PRN PRN Reason: Constipation Melatonin (Melatonin 3 Mg Tablet) 6 mg PO BEDTIME PRN PRN Reason: Insomnia Pt Owned Medication (Dupixent 300mg Subcutaneous Pre- Filled Pen) 1 each SUBCUT Q14D [facility] Last Admin: 04/07/25 13:06 Dose: 1 each Documented By: MICHAEL Omeprazole (Omeprazole 40 Mg Capsule.) 40 mg PO DAILY@0630 [facility] Last Admin: 04/09/25 05:54 Dose: 40 mg Documented By: JERONIMO Sodium Chloride (0.9 % Sodium Chloride Flush 3 Ml Syringe) 3 ml IVFLUSH QSHIFT [facility] Last Admin: 04/09/25 09:12 Dose: 3 ml Documented By: ARIN Tamsulosin HCl (Tamsulosin Hcl 0.4 Mg Capsule) 0.4 mg PO DAILY [facility] Last Admin: 04/09/25 09:12 Dose: 0.4 mg Documented By: ARIN Labs 04/08/25 14:31 04/09/25 06:21 Labs: Laboratory Results - last 24 hr 04/08/25 04/08/25 04/09/25 14:31 17:42 06:21 MCV 90.1 MCH 31.0 MCHC 34.4 RDW 13.2 Plt Count 215 MPV 9.1 L Immature Gran % (Auto) 0.3 Neut % (Auto) 56.1 Lymph % (Auto) 18.1 L [place] % (Auto) 13.4 H Eos % (Auto) 11.5 H Baso % (Auto) 0.6 Lymph # (Auto) 1.2 [place] # (Auto) 0.9 Eos # (Auto) 0.8 H Baso # (Auto) 0.0 Abs Immat Gran (auto) 0.02 Absolute Neuts (auto) 3.9 Absolute Nucleated RBC 0.000 Nucleated RBC % (auto) 0.0 Anion Gap 9 L 10 L Estim Creat Clear Calc 98.7 106.5 Estimated GFR > 60 > 60 Random Glucose 93 95 Calcium 8.8 8.3 L TSH 1.45 Urine Osmolality 293 L Ur Random Sodium < 20.0 Assessment and Plan (1) Pneumonia: Status: Acute Plan 74M PMH CVA with residual right-sided weakness and expressive aphasia, vascular dementia, bph, seizure disorder, COPD, presented 04/06/25 from independent living with falls and weakness, initially ER observation, but developed cough, found to have pneumonia and admitted 04/08/[address] showing left-sided pneumonia with small parapneumonic effusion IV ceftriaxone, azithromycin Should have outpatient follow-up imaging after treatment course FARM FIELD MANAGER appreciated continue NDD3 solids, thin liquids hyponatremia sodium 131 trend BMP Mechanical fall with right knee pain X-ray showing degenerative changes with small joint effusion, no fractures appreciated PT evaluation-recommending short-term rehab Seizure disorder Continue Keppra Mood Continue Prozac History of stroke continue DAPT, statin gerd continue prilosec bph continue flomax dvt ppt - heparin code status - full code reason for continued hospitalization:dispo planning Quality Stroke Does the patient have a stroke diagnosis?: No VTE Prior VTE?: No VTE Risk Level:: Medical - moderate - high VTE Device Contraindication: Treatment Not Indicated VTE Drug Contraindication: N/A - Med Ordered
--- NOTE | 2025-04-09 12:19 | MHC.CM.PN ---
Met with patient and at bedside. Patient mostly sleeping, questions answered by /HCP Fredis. IMM delivered. Patient lives in an apartment @ [facility]. Ambulates w/ a rollator, uses w/c at times, 1 assist xfer ( or staff assist). PCP Fernandez LUBIN HCP on file and verified. Patient is a . thinks he is [facility], but unsure of percentage. LM for Effie at [place] to inform of admission and request this information. DP: PT rec STR. believes he is [facility] prime, [facility] 04/11. No facility preference. However patient has been to the following SNF's that he would not agree to return to: [facility]. R Referrals sent via [facility]. CM will continue to follow.
[2025-04-09 15:56] VITALS: BP 114/69; PULSE 66; RESP 14; TEMP 36.8; O2SAT 95
[2025-04-09 20:00] VITALS: BP 117/68; PULSE 60; RESP 16; TEMP 36.6; O2SAT 95
[2025-04-09] MEDS: Albuterol Sulfate (0.083%) 2.5 MG/3 ML VIAL.NEB INHALE (20:58)
[2025-04-09 20:59] VITALS: PULSE 60; RESP 16; O2SAT 95
[2025-04-10 03:07] VITALS: BP 109/57; PULSE 64; RESP 16; TEMP 36.4; O2SAT 92
[2025-04-10 06:54] LABS: Hematocrit 36.1 % (42.0-52.0); Hemoglobin 12.4 g/dl (14.0-18.0); Mean Corpuscular HGB Conc 34.3 g/dl (31.0-36.0); Mean Corpuscular Hemoglobin 30.9 pg (27.0-33.0); Mean Corpuscular Volume 90.0 fL (80.0-98.0); NRBC Abs Auto 0.000 X10*3/uL (0.0-0.012); NRBC Pct Auto 0.0 /100WBC (0.0-0.2); Platelet Count 211 X10*3/uL (160-400); Red Blood Count 4.01 X10*6/uL (4.60-5.80); White Blood Count 5.8 X10*3/uL (4.8-10.8)
[2025-04-10 07:13] LABS: Anion Gap 11 (12-20); Blood Urea Nitrogen 18 mg/dL (9-16); Calcium 8.2 mg/dL (8.4-10.2); Carbon Dioxide 22 mmol/L (22-29); Chloride 102 mmol/L (96-108); Creatinine Clr Calc Pharmacy 98.1; Estimated Glomerular Filt Rate > 60; Potassium 4.0 mmol/L (3.3-5.1); Sodium 131 mmol/L (135-145)
[2025-04-10 07:54] VITALS: PULSE 70; RESP 18; O2SAT 96
[2025-04-10] MEDS: Fluticasone/Umeclidinium/Vilanterol 200/62.5/25 BLST.W.DEV 1 PUFF INHALE (07:54)
[2025-04-10 08:00] VITALS: BP 116/64; PULSE 66; RESP 16; TEMP 36.7; O2SAT 95
--- NOTE | 2025-04-10 08:47 | P.PNIM_ITS ---
Subjective Subjective Date of Service: 04/10/25 Interval History: no complaints Physical Exam 2 Exam: Exam: General: Alert, verbal with wernickes aphasia Resp: CTA bilateral, no accessory muscles used CVS: S1,S2,RRR GI: soft, non tender, non distended Vital Signs: Vital Signs: Last Vital Signs Temp 98.1 F 04/10/25 08:00 Pulse 66 04/10/25 08:00 Resp 16 04/10/25 08:00 BP 116/64 04/10/25 08:00 Pulse Ox 95 04/10/25 08:00 O2 Del Method Room Air 04/10/25 08:00 BMI result Body Mass Index 31.2 Objective Data Active Medications Acetaminophen (Acetaminophen 325 Mg Tablet) 650 mg PO Q12H PRN PRN Reason: Pain, Mild Acetaminophen (Acetaminophen 325 Mg Tablet) 650 mg PO Q6H PRN PRN Reason: Pain, Mild 1-3,fever,headache Albuterol Sulfate (Albuterol Sulfate (0.083%) 2.5 Mg/3 Ml Vial.Neb) 2.5 mg INHALE Q6H PRN PRN Reason: Wheezing Last Admin: 04/09/25 20:58 Dose: 2.5 mg Documented By: LOIDA Albuterol Sulfate (Albuterol Sulfate 90 Mcg 8 Gm Inhaler) 2 puff INHALE Q4H PRN PRN Reason: Wheezing Aspirin (Aspirin 325 Mg Tablet) 325 mg PO DAILY [facility] Last Admin: 04/09/25 09:12 Dose: 325 mg Documented By: ARIN Atorvastatin Calcium (Atorvastatin Calcium 80 Mg Tablet) 80 mg PO DAILY [facility] Last Admin: 04/09/25 09:12 Dose: 80 mg Documented By: ARIN Baclofen (Baclofen 20 Mg Tablet) 20 mg PO QID [facility] Last Admin: 04/09/25 20:14 Dose: 20 mg Documented By: JERONIMO Calcium Carbonate (Calcium Carbonate 750 Mg Tab.Chew) 750 mg PO Q4H PRN PRN Reason: Heartburn Ceftriaxone Sodium (Ceftriaxone Sodium 1 Gm Vial) 1 gm IVPUSH Q24H [facility] Last Admin: 04/09/25 16:02 Dose: 1 gm Documented By: ARIN Clopidogrel Bisulfate (Clopidogrel Bisulfate 75 Mg Tablet) 75 mg PO DAILY [facility] Last Admin: 04/09/25 09:11 Dose: 75 mg Documented By: ARIN Docusate Sodium (Docusate Sodium 100 Mg Capsule) 100 mg PO DAILY [facility] Last Admin: 04/09/25 09:12 Dose: 100 mg Documented By: ARIN Famotidine (Famotidine 20 Mg Tablet) 40 mg PO BEDTIME [facility] Last Admin: 04/09/25 20:14 Dose: 40 mg Documented By: JERONIMO Fluoxetine HCl (Fluoxetine Hcl 20 Mg Capsule) 20 mg PO DAILY [facility] Last Admin: 04/09/25 09:12 Dose: 20 mg Documented By: ARIN Fluticasone Propionate (Fluticasone Propionate Nasal 16 Gm [place]) 2 spray NOSTRIL-B DAILY [facility] Last Admin: 04/09/25 09:13 Dose: 2 spray Documented By: ARIN Fluticasone/Umeclidinium/Vilanterol (Fluticasone/Umeclidinium/Vilanterol 200/62.5/25 Blst.W.Dev) 1 puff INHALE DAILY [facility] Last Admin: 04/10/25 07:54 Dose: 1 puff Documented By: ELVA Heparin Sodium (Porcine) (Heparin Sodium,Porcine 5,000 Unit/Ml Vial) 5,000 unit SUBCUT Q12H [facility] Last Admin: 04/10/25 02:44 Dose: 5,000 unit Documented By: JERONIMO Azithromycin 500 mg/ Sodium (Chloride) 250 mls @ 125 mls/hr IV Q24H [facility] Last Infusion: 04/09/25 18:37 Dose: Infused Documented By: ARIN Levetiracetam (Levetiracetam 250 Mg Tablet) 750 mg PO BID [facility] Last Admin: 04/09/25 20:14 Dose: 750 mg Documented By: JERONIMO Magnesium Hydroxide (Milk Of Magnesia 30 Ml Oral.Susp) 30 ml PO DAILY PRN PRN Reason: Constipation Melatonin (Melatonin 3 Mg Tablet) 6 mg PO BEDTIME PRN PRN Reason: Insomnia Pt Owned Medication (Dupixent 300mg Subcutaneous Pre- Filled Pen) 1 each SUBCUT Q14D [facility] Last Admin: 04/07/25 13:06 Dose: 1 each Documented By: MICHAEL Omeprazole (Omeprazole 40 Mg Capsule.) 40 mg PO DAILY@0630 [facility] Last Admin: 04/10/25 05:22 Dose: 40 mg Documented By: JERONIMO Sodium Chloride (0.9 % Sodium Chloride Flush 3 Ml Syringe) 3 ml IVFLUSH QSHIFT [facility] Last Admin: 04/09/25 20:15 Dose: 3 ml Documented By: JERONIMO Tamsulosin HCl (Tamsulosin Hcl 0.4 Mg Capsule) 0.4 mg PO DAILY [facility] Last Admin: 04/09/25 09:12 Dose: 0.4 mg Documented By: ARIN Labs 04/10/25 06:17 04/10/25 06:17 Labs: Laboratory Results - last 24 hr 04/10/25 06:17 MCV 90.0 MCH 30.9 MCHC 34.3 RDW 13.2 Plt Count 211 MPV 9.2 L Absolute Nucleated RBC 0.000 Nucleated RBC % (auto) 0.0 Anion Gap 11 L Estim Creat Clear Calc 98.1 Estimated GFR > 60 Random Glucose 93 Calcium 8.2 L Assessment and Plan (1) Pneumonia: Status: Acute Plan 74M PMH CVA with residual right-sided weakness and expressive aphasia, vascular dementia, bph, seizure disorder, COPD, presented 04/06/25 from independent living with falls and weakness, initially ER observation, but developed cough, found to have pneumonia and admitted 04/08/[address] showing left-sided pneumonia with small parapneumonic effusion IV ceftriaxone, azithromycin Should have outpatient follow-up imaging after treatment course [employer] appreciated continue NDD3 solids, thin liquids hyponatremia sodium 131 Mechanical fall with right knee pain X-ray showing degenerative changes with small joint effusion, no fractures appreciated PT evaluation-recommending short-term rehab Seizure disorder Continue Keppra Mood Continue Prozac History of stroke continue DAPT, statin gerd continue prilosec bph continue flomax dvt ppt - heparin code status - full code reason for continued hospitalization:dispo planning Quality Stroke Does the patient have a stroke diagnosis?: No VTE Prior VTE?: No VTE Risk Level:: Medical - moderate - high VTE Device Contraindication: Treatment Not Indicated VTE Drug Contraindication: N/A - Med Ordered
[2025-04-10] MEDS: 0.9 % Sodium Chloride Flush 3 ML SYRINGE IVFLUSH ×2 (08:56→20:00)
--- NOTE | 2025-04-10 13:08 | MHC.CM.PN ---
Patient and accepted bed at [facility]. Planned dc tomorrow.
[2025-04-10 15:48] VITALS: BP 145/72; PULSE 62; RESP 14; TEMP 36.6; O2SAT 97
--- NOTE | 2025-04-10 18:21 | HO.SKINPHOTO ---
Iv Ziregineo infiltrated @7620. Pt c/o burning at site. Observed redness and swelling. stopped and removed IV. applied cold compress and elevated ext. Notfied Jesin and will cont to monitor.
[2025-04-10 19:17] VITALS: BP 140/73; PULSE 62; RESP 14; TEMP 36.3; O2SAT 95
[2025-04-11 03:14] VITALS: BP 130/72; PULSE 65; RESP 17; TEMP 36.1; O2SAT 92
[2025-04-11 07:41] VITALS: BP 120/71; PULSE 63; RESP 18; TEMP 36.8; O2SAT 93
[2025-04-11 08:12] VITALS: PULSE 63; RESP 18; O2SAT 94
[2025-04-11] MEDS: Fluticasone/Umeclidinium/Vilanterol 200/62.5/25 BLST.W.DEV 1 PUFF INHALE (08:12)
[2025-04-11] MEDS: 0.9 % Sodium Chloride Flush 3 ML SYRINGE IVFLUSH (08:57)
--- NOTE | 2025-04-11 09:00 | MHC.CM.PN ---
Patient medically cleared for dc to [facility] at [facility]. BLS transport scheduled for 10am. RN, and patient aware.
--- NOTE | 2025-04-11 09:25 | P.DS_ITS ---
DS: Providers Provider Date of Service: 04/11/25 Date of admission: 04/08/25 14:14 Date of discharge: 04/11/25 Primary care physician: AMEE Hillman DS: Diagnosis Discharge Diagnosis (1) Pneumonia: Status: Acute DS: Summary Hospital Course Hospital Course: from initial hpi: 74-year-old male with a history of stroke with residual right-sided weakness and expressive aphasia who presented to the emergency department due to weakness. He fell on FridayApril 02 at the assisted living facility, he fell onto his right side and hit his head. At that time he did not go to the hospital. Since his fall he has been a to assist. And he has had right knee pain since the fall. The day prior to arrival in the hospital he was seen at the [facility] and had x-rays of his knee which were unremarkable. CT scan done in the emergency department showed a 5 mm hyperdensity likely calcification but could not rule out intracranial hemorrhage, the case was discussed with [facility] who recommended repeating the head CT. Head CT was stable and therefore no indication for any further intervention. He was admitted to [facility] under physician observation for physical therapy evaluation. While in [facility] patient was noted to have productive cough, a chest CT was obtained which showed a left-sided pneumonia with small parapneumonic effusion. For this reason the decision was made to admit him to the hospital for further management. Patient is unable to provide any significant history himself due to deficits from his stroke, history was primarily obtained from his at the bedside. hospital course: Patient was admitted for pneumonia. Was treated with ceftriaxone azithromycin with improvement in symptoms we will discharged on 3 more days of Ceftin and azithromycin. Was seen by speech therapy recommended ndd3 solids and thin liquids. Patient noted to have mild hyponatremia, stable in the 130s. For mechanical fall with right knee pain x-ray showed degenerative changes with small joint effusions was seen by physical therapy recommended short-term rehab to which patient will be discharged he is expected to require less than 30 days. For seizure disorder was continued on Keppra. For mood disorder was continued on Prozac. For history of stroke was continued on dual antiplatelet and statin. For GERD was continued on Prilosec. For BPH was continued on Flomax. Patient is medically stable and will be discharged to short-term rehab. Time Attestation Discharge Coordination Time (in mins): 32 Quality: Safe Use of Opioids Does Pt have an Active Cancer Diagnosis on the Problem List?: No Quality: Stroke Does the patient have a stroke diagnosis?: No Physical Exam Exam: Exam: General: Alert, verbal with wernickes aphasia Resp: CTA bilateral, no accessory muscles used CVS: S1,S2,RRR GI: soft, non tender, non distended Vital Signs: Vital Signs: Last Vital Signs Temp 98.3 F 04/11/25 07:41 Pulse 63 04/11/25 08:12 Resp 18 04/11/25 08:12 BP 120/71 04/11/25 07:41 Pulse Ox 93 04/11/25 07:41 O2 Del Method Room Air 04/11/25 07:41 BMI result Body Mass Index 31.2 Discharge Plan Discharge Anticipated Discharge Date/Time: 04/11/25 09:23 Patient Disposition: Xfer SNF Discharge Diagnosis: pna Referrals: [facility] [Outside] - 1 Day Referral Note: short term rehab [facility] [Primary Care Provider, Internal Medicine] - 1 Week Discharge Medications: New cefuroxime axetil 500 mg tablet 500 mg PO BID Qty: 6 0RF azithromycin 500 mg tablet 500 mg PO DAILY 5 Days Qty: 3 0RF Continued acetaminophen 500 mg Tablet 500 mg PO Q12H PRN (Reason: Pain, Mild) atorvastatin [Lipitor] 80 mg Tablet 80 mg PO DAILY albuterol sulfate 2.5 mg /3 mL (0.083 %) Solution For Nebulization 2.5 mg inhalation Q6H PRN (Reason: Wheezing) aspirin 325 mg Tablet 325 mg PO DAILY famotidine 40 mg Tablet 40 mg PO BEDTIME omeprazole 40 mg Capsule,Delayed Release(Dr/Ec) 40 mg PO DAILY guar gum Packet 1 tbsp PO DAILY Rx Instructions: mix into at least 4 oz water or juice before administering baclofen 20 mg Tablet 20 mg QID tamsulosin [Flomax] 0.4 mg Capsule 0.4 mg PO DAILY levetiracetam 750 mg Tablet 750 mg PO BID albuterol sulfate 90 mcg/actuation Hfa Aerosol Inhaler 2 puff INHALATION Q4H PRN (Reason: Wheezing) fluoxetine [Prozac] 20 mg Capsule 20 mg PO DAILY fluticasone propionate 50 mcg/actuation [place],Suspension 2 spray INTRANASAL DAILY Rx Instructions: administer into each nostril docusate sodium 100 mg Tablet 100 mg PO DAILY Trelegy Ellipta 200-62.5-25 mcg Blister With Device 1 inh INHALATION DAILY Dupixent Pen 300 mg/2 mL Pen Injector 300 mg SUBCUT Q2W clopidogrel 75 mg Tablet 75 mg PO DAILY niacinamide 500 mg Tablet 500 mg PO BID Discharge Orders: Discharge Order (Routine); Ordered 04/11/25 Ordered By: Jorge Alberto Daily Diet: NDD3 solids, thin liq Activity on Discharge: As tolerated Stand Alone Forms: Patient Portal Discharge page Print Language: Latvian Care Plan Goals: recovery Health Concerns: pna Plan of Treatment: 3 more days ceftin and azitrho Assessment: see above
--- NOTE | 2025-04-11 09:37 | HO.SKINPHOTO ---
Location: Top of right foot. Bandaid was in place, loose, bandaid removed. reports that at home patient uses an ointment, but was unable to remember what kind. Patient reports itching. Cleaned with soap and water, pat dry, xeroform, gauze and tegaderm placed.
[2025-04-11 10:03] VITALS: BP 132/74; PULSE 75; RESP 18; TEMP 36.8; O2SAT 98
== END 2025-04-11 10:09 | disposition skilled nursing facility (03) | DRG 194 ==
LOC: HO.ED 04-08 13:17 → HO.EDOVER 04-08 14:14 → HO.S3 04-08 14:47
PROVIDERS: Physician Assistant; Admitting Provider Physician Assistant Medical; Emergency Provider Emergency Medicine Emergency Medical Services; PCP Physician Assistant; Visit Provider Internal Medicine
DX: J18.9 Pneumonia, unspecified organism (principal); E87.1 Hypo-osmolality and hyponatremia; I69.351 Hemiplegia and hemiparesis following cerebral infarction affecting right dominant side; J91.8 Pleural effusion in other conditions classified elsewhere; W19.XXXA Unspecified fall, initial encounter; I69.320 Aphasia following cerebral infarction; G40.909 Epilepsy, unspecified, not intractable, without status epilepticus; K21.9 Gastro-esophageal reflux disease without esophagitis; M25.461 Effusion, right knee; N40.0 Benign prostatic hyperplasia without lower urinary tract symptoms; Z20.822 Contact with and (suspected) exposure to COVID-19; Z87.891 Personal history of nicotine dependence; Z79.02 Long term (current) use of antithrombotics/antiplatelets; Z79.51 Long term (current) use of inhaled steroids; Z79.899 Other long term (current) drug therapy
CPT/HCPCS: 36415; 70450; 71045; 71250; 73560; 80048; 80053; 81003; 83735; 83935; 84300; 84443; 85025; 85027; 87502; 87635; 92610; 93005; 94640; 97162; 99285; J0456; J0696; J1644

== ENCOUNTER → 2025-04-06 16:01 | Outpatient (BNV) | payer MEDICARE, SELFPAY | PROVIDERS: Emergency Provider Emergency Medicine Emergency Medical Services; PCP Physician Assistant; Visit Provider Specialist | DX: S09.90XA Unspecified injury of head, initial encounter (principal); I63.412 Cerebral infarction due to embolism of left middle cerebral artery; R90.82 White matter disease, unspecified; W18.09XA Striking against other object with subsequent fall, initial encounter | CPT/HCPCS: 70450; 73560 ==

== ENCOUNTER → 2025-04-06 16:02 | Outpatient (BNV) | payer MEDICARE, SELFPAY | PROVIDERS: Emergency Provider Emergency Medicine Emergency Medical Services; PCP Physician Assistant; Visit Provider Internal Medicine Cardiovascular Disease | DX: R53.1 Weakness (principal) | CPT/HCPCS: 93010 ==

== ENCOUNTER → 2025-04-08 06:09 | Outpatient (BNV) | payer OTHER, MEDICARE, SELFPAY | PROVIDERS: Emergency Provider Emergency Medicine Emergency Medical Services; PCP Physician Assistant; Visit Provider Radiology Diagnostic Radiology | DX: R91.8 Other nonspecific abnormal finding of lung field (principal); R05.9 Cough, unspecified | CPT/HCPCS: 71045; 71250 ==

== ENCOUNTER → 2025-04-08 14:14 | Outpatient (BNV) | payer OTHER, MEDICARE, SELFPAY | PROVIDERS: Admitting Provider Physician Assistant Medical; Emergency Provider Emergency Medicine Emergency Medical Services; PCP Physician Assistant; Visit Provider Physician Assistant Medical | DX: J18.9 Pneumonia, unspecified organism (principal) | CPT/HCPCS: 99223; 99231; 99232; 99239 ==